=== PATIENT | female | born 1980 | race American Indian/Alaskan Native ===

== ENCOUNTER 2020-07-04 09:19 | Outpatient (CLI) | payer MEDICAID ==
--- NOTE | 2020-07-04 11:58 | Ultrasound Report ---
US soft tissue head and neck INDICATION / CLINICAL INFORMATION: Palpable abnormality in the right neck. Patient had second dose of Covid vaccine in the right arm on 06/23/2020 COMPARISON: None available. FINDINGS: There are 2 small lymph nodes in the right neck. These measure 5 mm and 4 mm in the short axis corres pond to the area of palpable concern. No abnormally enlarged nodes are identified. No suspicious mass lesions are seen. IMPRESSION: 1. 2 small lymph nodes are identified in the right neck in the area of palpable concern. These may be reactive lymph nodes related to the patient's recent vaccination. Signer Name: Nitesh Sahu MD Signed: 07/04/2020 11:53 AM Workstation Name: [id number]
== END 2020-07-04 09:20 | disposition home or self-care (01) ==
LOC: MAMMO 09:19
PROVIDERS: ATTEND Family Medicine
DX: R22.1 Localized swelling, mass and lump, neck (principal); R92.8 Other abnormal and inconclusive findings on diagnostic imaging of breast
CPT/HCPCS: 76536